=== PATIENT | male | born 1930 | race Hispanic/Latino ===

== ENCOUNTER → 2019-11-14 | Outpatient (CLI) | payer OTHER | END | disposition home or self-care (01) | LOC: SHCH 11:00 | PROVIDERS: ATTEND Internal Medicine Cardiovascular Disease | DX: I48.0 Paroxysmal atrial fibrillation (principal) | CPT/HCPCS: 93306; 93356 ==

== ENCOUNTER → 2019-12-06 | Outpatient (CLI) | payer OTHER | END | disposition home or self-care (01) | LOC: SHCH 10:18 → EDUNIT# 10:30 | PROVIDERS: ATTEND Internal Medicine Cardiovascular Disease | DX: R60.9 Edema, unspecified (principal) | CPT/HCPCS: 93970 ==

== ENCOUNTER 2020-03-03 08:56 | Inpatient (IN) | payer OTHER ==
[~2020-03-03] VITALS: Ht 175.3 cm; Wt 67.1 kg
[2020-03-03] MEDS ORDERED: ZOSYN 3.375GM+NS 50ML 50 ML IV ONE (09:14)
[2020-03-03 09:30] LABS: BASOPHILS % (AUTO) 0.4 % (0.0-5.0); EOSINOPHILS % (AUTO) 2.3 % (0.0-8.0); HEMATOCRIT 26.9 % (42-54); LYMPHOCYTES % (AUTO) 18.6 % (21.0-51.0); MEAN CORPUSCULAR HEMOGLOBIN 32.6 pg (27.0-33.0); MEAN CORPUSCULAR HGB CONC 34.2 g/dL (32.0-36.0); MEAN CORPUSCULAR VOLUME 95.4 fL (79-99); MONOCYTES % (AUTO) 9.9 % (3.0-13.0); NEUTROPHILS % (AUTO) 68.3 % (40.0-77.0); PLATELET COUNT (AUTO) 251 K/uL (130-400); RED BLOOD CELL COUNT(AUTO) 2.82 MIL/uL (4.50-6.20); RED CELL DISTRIBUTION WIDTH 13.8 % (11.0-15.5); WHITE BLOOD COUNT (AUTO) 7.8 K/uL (4.8-10.8)
[2020-03-03 09:38] LABS: CREATININE 2.8 mg/dL (0.5-1.5); POTASSIUM 3.9 mmol/L (3.5-5.1)
[2020-03-03 09:43] LABS: ALBUMIN 3.3 g/dL (3.5-5.0); BILIRUBIN,TOTAL 0.6 mg/dL (0.2-1.0)
[2020-03-03] MEDS ORDERED: DIATR MEGLU/DIATRIZOATE SODIUM 30 ML BOTTLE ONE (10:48)
[2020-03-03 11:57] LABS: APPEARANCE,URINE Clear (CLEAR); BILIRUBIN,URINE Negative (NEGATIVE); COLOR,URINE Yellow (YELLOW); GLUCOSE, URINE (UA) Negative (NEGATIVE); KETONES,URINE Negative (NEGATIVE); LEUKOCYTE ESTERASE ,URINE Negative (NEGATIVE); NITRATE,URINE Negative (NEGATIVE); OCCULT BLOOD,URINE Negative (NEGATIVE); PH,URINE 5.5 (5.0-8.0); PROTEIN,URINE POS 2+ mg/dL (NEGATIVE)
[2020-03-03 12:04] LABS: BACTERIA,URINE Rare /HPF (None Seen); RBC,URINE 0-1 /HPF (0-1); SQUAMOUS EPITHELIAL CELL,UR Rare /HPF (0-2); WBC,URINE 0-1 /HPF (0-1)
[2020-03-03] MEDS ORDERED: HYDROCODONE/ACETAMINOPHEN 5/325 MG TAB PO PRN (15:45)
[2020-03-03] MEDS ORDERED: HYDRALAZINE HCL 20 MG/ML VIAL IV PRN (15:45)
[2020-03-03 20:08] VITALS: BP 142/64
[2020-03-03] MEDS ORDERED: SODIUM CHLORIDE 0.9% 250 ML IV ONE (21:06)
[2020-03-03] MEDS: DOXYCYCLINE HYCLATE 100 MG TABLET PO SCH (21:08)
[2020-03-03] MEDS: ZOSYN 3.375GM+NS 50ML 50 ML IV SCH (21:08)
[2020-03-03] MEDS: CARBIDOPA-LEVODOPA 25-100 TAB PO SCH (21:08)
[2020-03-03] MEDS: SODIUM BICARBONATE 650 MG TAB PO SCH (21:08)
[2020-03-03] MEDS: HEPARIN SODIUM 5000UNIT/ML 1ML VIAL SQ SCH (21:16)
[2020-03-04] VITALS (7 sets, daily range): BP systolic 128–147; BP diastolic 62–77
[2020-03-04] MEDS ORDERED: AMIO200T6 PO (01:20)
[2020-03-04] MEDS ORDERED: CARB1TAB20 PO (01:20)
[2020-03-04] MEDS ORDERED: CLIN300C9 PO (01:20)
[2020-03-04] MEDS ORDERED: SODI650T PO (01:20)
[2020-03-04] MEDS ORDERED: BENA20TA10 PO (01:20)
[2020-03-04] MEDS ORDERED: ACET-2123 PO (01:20)
[2020-03-04 05:42] LABS: BASOPHILS % (AUTO) 0.7 % (0.0-5.0); EOSINOPHILS % (AUTO) 2.8 % (0.0-8.0); HEMATOCRIT 24.4 % (42-54); MEAN CORPUSCULAR HEMOGLOBIN 32.4 pg (27.0-33.0); MEAN CORPUSCULAR HGB CONC 34.4 g/dL (32.0-36.0); MEAN CORPUSCULAR VOLUME 94.2 fL (79-99); MONOCYTES % (AUTO) 9.5 % (3.0-13.0); NEUTROPHILS % (AUTO) 65.5 % (40.0-77.0); PLATELET COUNT (AUTO) 220 K/uL (130-400); RED BLOOD CELL COUNT(AUTO) 2.59 MIL/uL (4.50-6.20); RED CELL DISTRIBUTION WIDTH 13.6 % (11.0-15.5); WHITE BLOOD COUNT (AUTO) 6.1 K/uL (4.8-10.8)
[2020-03-04 06:06] LABS: ALBUMIN 2.7 g/dL (3.5-5.0); BILIRUBIN,TOTAL 0.6 mg/dL (0.2-1.0); CREATININE 2.5 mg/dL (0.5-1.5); CRP QUANTITATIVE 48.2 mg/L (0.00-9.0); POTASSIUM 4.3 mmol/L (3.5-5.1); TOTAL PROTEIN, SERUM 6.6 g/dL (6.0-8.3)
[2020-03-04 06:18] LABS: % IRON SATURATION 15.9 % (30-44)
[2020-03-04] MEDS ORDERED: AMLODIPINE BESYLATE 5 MG TAB PO SCH (09:00)
[2020-03-04] MEDS ORDERED: BENAZEPRIL HCL 10 MG TABLET PO SCH (09:00)
[2020-03-04] MEDS: CYANOCOBALAMIN (VITAMIN B-12) 1,000 MCG TABLET PO SCH (10:17)
[2020-03-04] MEDS: FERROUS SULFATE 325 MG TABLET.DR PO SCH (10:17)
[2020-03-04] MEDS: ZOSYN 3.375GM+NS 50ML 50 ML IV SCH ×2 (10:17→20:04)
[2020-03-04] MEDS: Vitamin B Complex/Vit C/Folic Acid PO SCH (10:17)
[2020-03-04] MEDS: TAMSULOSIN HCL 0.4 MG CAP.ER.24H PO SCH (10:17)
[2020-03-04] MEDS: BENAZEPRIL HCL 10 MG TABLET PO SCH (10:18)
[2020-03-04] MEDS: DOXYCYCLINE HYCLATE 100 MG TABLET PO SCH ×2 (10:18→20:04)
[2020-03-04] MEDS: FAMOTIDINE 20MG TAB 20 MG TAB PO SCH (10:18)
[2020-03-04] MEDS: PANTOPRAZOLE SODIUM 40 MG TABLET.DR PO SCH (10:18)
[2020-03-04] MEDS: SODIUM BICARBONATE 650 MG TAB PO SCH ×2 (10:18→20:04)
[2020-03-04] MEDS: AMIODARONE HCL 200 MG TABLET PO SCH (10:18)
[2020-03-04] MEDS: CARBIDOPA-LEVODOPA 25-100 TAB PO SCH ×3 (10:20→20:04)
[2020-03-04] MEDS: HEPARIN SODIUM 5000UNIT/ML 1ML VIAL SQ SCH ×2 (10:32→20:13)
--- NOTE | 2020-03-04 12:45 | NUR ---
[facility] DC Storage Engineer spoke to pt's daughter Kimberly Ku discussed dc plans. Pt is semi-independent prior to admission, lives at home alone, daughters lives close by. Pt has a walker, private pay provider, handicapped ramp. Denies any other equipments/services. Feels safe to go back home, daughters able to assist with transportation and needs as necessary. PT and daughter are agreeable for placement if necessary, will wait for MD recommendations. DC plan to home vs SNF/IRU. CM to continue to follow up. Addendum: 03/04/20 at 1249 by ZION COYNE LVN Amended: Links added.
[2020-03-04] MEDS ORDERED: ACETAMINOPHEN 325 MG TAB PO PRN (19:30)
[2020-03-04] MEDS ORDERED: DIPHENHYDRAMINE HCL 25 MG CAPSULE PO PRN (19:30)
[2020-03-05] MEDS ORDERED: DIPHENHYDRAMINE HCL 25 MG CAPSULE ONE (01:31)
[2020-03-05 04:29] VITALS: BP 140/75
[2020-03-05 05:23] LABS: BASOPHILS % (AUTO) 0.3 % (0.0-5.0); EOSINOPHILS % (AUTO) 2.2 % (0.0-8.0); HEMATOCRIT 25.2 % (42-54); LYMPHOCYTES % (AUTO) 19.8 % (21.0-51.0); MEAN CORPUSCULAR HEMOGLOBIN 32.3 pg (27.0-33.0); MEAN CORPUSCULAR HGB CONC 34.5 g/dL (32.0-36.0); MEAN CORPUSCULAR VOLUME 93.7 fL (79-99); MONOCYTES % (AUTO) 8.3 % (3.0-13.0); NEUTROPHILS % (AUTO) 68.9 % (40.0-77.0); PLATELET COUNT (AUTO) 212 K/uL (130-400); RED BLOOD CELL COUNT(AUTO) 2.69 MIL/uL (4.50-6.20); RED CELL DISTRIBUTION WIDTH 13.4 % (11.0-15.5); WHITE BLOOD COUNT (AUTO) 6.5 K/uL (4.8-10.8)
[2020-03-05 05:40] LABS: ALBUMIN 2.7 g/dL (3.5-5.0); BILIRUBIN,TOTAL 0.4 mg/dL (0.2-1.0); CREATININE 2.5 mg/dL (0.5-1.5); MAGNESIUM 2.2 mg/dL (1.80-2.40); PHOSPHORUS 3.4 mg/dL (2.5-4.9); POTASSIUM 4.3 mmol/L (3.5-5.1); TOTAL PROTEIN, SERUM 6.9 g/dL (6.0-8.3)
[2020-03-05 08:20] VITALS: BP 127/68
[2020-03-05] MEDS: ZOSYN 3.375GM+NS 50ML 50 ML IV SCH ×2 (08:53→22:04)
[2020-03-05] MEDS: CYANOCOBALAMIN (VITAMIN B-12) 1,000 MCG TABLET PO SCH (09:00)
[2020-03-05] MEDS: TAMSULOSIN HCL 0.4 MG CAP.ER.24H PO SCH (09:00)
[2020-03-05] MEDS: Vitamin B Complex/Vit C/Folic Acid PO SCH (09:00)
[2020-03-05] MEDS: AMIODARONE HCL 200 MG TABLET PO SCH (09:00)
[2020-03-05] MEDS: FAMOTIDINE 20MG TAB 20 MG TAB PO SCH (09:00)
[2020-03-05] MEDS: HEPARIN SODIUM 5000UNIT/ML 1ML VIAL SQ SCH ×2 (09:00→21:00)
[2020-03-05] MEDS: FERROUS SULFATE 325 MG TABLET.DR PO SCH (09:00)
[2020-03-05] MEDS: SODIUM BICARBONATE 650 MG TAB PO SCH ×2 (09:00→22:04)
[2020-03-05] MEDS: DOXYCYCLINE HYCLATE 100 MG TABLET PO SCH ×2 (09:00→22:04)
[2020-03-05] MEDS: CARBIDOPA-LEVODOPA 25-100 TAB PO SCH ×3 (09:00→22:04)
[2020-03-05] MEDS: BENAZEPRIL HCL 10 MG TABLET PO SCH (09:00)
[2020-03-05] MEDS: PANTOPRAZOLE SODIUM 40 MG TABLET.DR PO SCH (09:00)
[2020-03-05] MEDS ORDERED: HALOPERIDOL DECANOATE 100 MG/ML ML IM SCH (11:00)
[2020-03-05] MEDS ORDERED: HALOPERIDOL LACTATE 5 MG/ML VIAL ONE (11:04)
[2020-03-05] MEDS ORDERED: HALOPERIDOL LACTATE 5 MG/ML VIAL IM SCH (11:15)
[2020-03-05 11:27] VITALS: BP 152/73
[2020-03-05] MEDS ORDERED: QUETIAPINE FUMARATE 25 MG TAB PO PRN (15:30)
[2020-03-05 16:15] VITALS: BP 155/76
[2020-03-05 20:22] VITALS: BP 142/74
[2020-03-05] MEDS: ACETAMINOPHEN-CODEINE 300/30MG TAB PO PRN (22:31)
[2020-03-05 23:54] VITALS: BP 135/64
[2020-03-06 04:15] VITALS: BP 134/76
[2020-03-06 04:18] LABS: BASOPHILS % (AUTO) 0.2 % (0.0-5.0); EOSINOPHILS % (AUTO) 1.6 % (0.0-8.0); HEMATOCRIT 23.1 % (42-54); LYMPHOCYTES % (AUTO) 22.6 % (21.0-51.0); MEAN CORPUSCULAR HEMOGLOBIN 31.8 pg (27.0-33.0); MEAN CORPUSCULAR HGB CONC 33.8 g/dL (32.0-36.0); MEAN CORPUSCULAR VOLUME 94.3 fL (79-99); MONOCYTES % (AUTO) 12.1 % (3.0-13.0); NEUTROPHILS % (AUTO) 63.1 % (40.0-77.0); PLATELET COUNT (AUTO) 194 K/uL (130-400); RED BLOOD CELL COUNT(AUTO) 2.45 MIL/uL (4.50-6.20); RED CELL DISTRIBUTION WIDTH 13.6 % (11.0-15.5); WHITE BLOOD COUNT (AUTO) 5.5 K/uL (4.8-10.8)
[2020-03-06 04:32] LABS: ALBUMIN 2.6 g/dL (3.5-5.0); ASPARTATE AMINOTRANSFERASE 24 U/L (10-37); BILIRUBIN,TOTAL 0.4 mg/dL (0.2-1.0); CARBON DIOXIDE 25 mmol/L (21-32); CHLORIDE 106 mmol/L (101-111); CREATININE 2.8 mg/dL (0.5-1.5); GLOMERULAR FILTR. RATE CALC 23 mL/min (>60); GLUCOSE,RANDOM 77 mg/dL (70-105); POTASSIUM 4.2 mmol/L (3.5-5.1); SODIUM SERUM 137 mmol/L (136-145); TOTAL PROTEIN, SERUM 6.6 g/dL (6.0-8.3); UREA NITROGEN, BLOOD 26 mg/dL (7-18)
[2020-03-06 04:33] LABS: ALANINE AMINOTRANSFERASE < 6 U/L (12-78)
[2020-03-06 07:30] VITALS: BP 115/70
--- NOTE | 2020-03-06 09:30 | NUR ---
RIGHT TOM AREA Addendum: 03/06/20 at 1421 by ELIANA FRANZ RN RN Amended: Links added.
[2020-03-06] MEDS: ZOSYN 3.375GM+NS 50ML 50 ML IV SCH ×2 (09:37→20:55)
[2020-03-06] MEDS: CARBIDOPA-LEVODOPA 25-100 TAB PO SCH ×3 (09:42→20:56)
[2020-03-06] MEDS: SODIUM BICARBONATE 650 MG TAB PO SCH ×2 (09:42→20:56)
[2020-03-06] MEDS: PANTOPRAZOLE SODIUM 40 MG TABLET.DR PO SCH (09:42)
[2020-03-06] MEDS: AMIODARONE HCL 200 MG TABLET PO SCH (09:42)
[2020-03-06] MEDS: TAMSULOSIN HCL 0.4 MG CAP.ER.24H PO SCH (09:42)
[2020-03-06] MEDS: FAMOTIDINE 20MG TAB 20 MG TAB PO SCH (09:42)
[2020-03-06] MEDS: DOXYCYCLINE HYCLATE 100 MG TABLET PO SCH ×2 (09:42→20:56)
[2020-03-06] MEDS: FERROUS SULFATE 325 MG TABLET.DR PO SCH (09:42)
[2020-03-06] MEDS: CYANOCOBALAMIN (VITAMIN B-12) 1,000 MCG TABLET PO SCH (09:42)
[2020-03-06] MEDS: Vitamin B Complex/Vit C/Folic Acid PO SCH (09:43)
[2020-03-06] MEDS: BENAZEPRIL HCL 10 MG TABLET PO SCH (09:43)
[2020-03-06] MEDS: HEPARIN SODIUM 5000UNIT/ML 1ML VIAL SQ SCH ×2 (09:50→21:10)
--- NOTE | 2020-03-06 11:40 | NUR ---
BACK FROM CT VIA BED HAD CT SAY / HEAD AND CT OF RIGHT PELVIC SOFT TISSUE
[2020-03-06 11:58] VITALS: BP 142/74
[2020-03-06] MEDS ORDERED: COMPOUND IV MISC 1 EACH IVSOLN MISC PRN (13:45)
[2020-03-06 16:00] VITALS: BP 144/68
[2020-03-06 19:47] VITALS: BP 143/66
[2020-03-06] MEDS: ACETAMINOPHEN-CODEINE 300/30MG TAB PO PRN (20:56)
[2020-03-06 23:57] VITALS: BP 148/73
[2020-03-07] VITALS (24 sets, daily range): BP systolic 112–161; BP diastolic 52–82
[2020-03-07 04:42] LABS: BASOPHILS % (AUTO) 0.3 % (0.0-5.0); EOSINOPHILS % (AUTO) 2.4 % (0.0-8.0); LYMPHOCYTES % (AUTO) 19.9 % (21.0-51.0); MEAN CORPUSCULAR HEMOGLOBIN 32.1 pg (27.0-33.0); MEAN CORPUSCULAR HGB CONC 33.8 g/dL (32.0-36.0); MEAN CORPUSCULAR VOLUME 94.9 fL (79-99); MONOCYTES % (AUTO) 9.4 % (3.0-13.0); NEUTROPHILS % (AUTO) 67.5 % (40.0-77.0); PLATELET COUNT (AUTO) 219 K/uL (130-400); RED BLOOD CELL COUNT(AUTO) 2.74 MIL/uL (4.50-6.20); RED CELL DISTRIBUTION WIDTH 13.6 % (11.0-15.5); WHITE BLOOD COUNT (AUTO) 7.6 K/uL (4.8-10.8)
[2020-03-07 04:54] LABS: CREATININE 2.7 mg/dL (0.5-1.5); POTASSIUM 4.2 mmol/L (3.5-5.1)
[2020-03-07] MEDS: SODIUM BICARBONATE 650 MG TAB PO SCH ×2 (09:00→20:27)
[2020-03-07] MEDS: HEPARIN SODIUM 5000UNIT/ML 1ML VIAL SQ SCH ×2 (09:00→20:29)
[2020-03-07] MEDS: DOXYCYCLINE HYCLATE 100 MG TABLET PO SCH ×2 (09:00→20:27)
[2020-03-07] MEDS: CARBIDOPA-LEVODOPA 25-100 TAB PO SCH ×3 (09:00→20:27)
[2020-03-07] MEDS: ZOSYN 3.375GM+NS 50ML 50 ML IV SCH ×2 (10:46→20:27)
[2020-03-07] MEDS: IRON SUCROSE COMPLEX 100 MG in SODIUM CHLORIDE 0.9% 50 ML IV SCH (10:46)
[2020-03-07] MEDS ORDERED: SODIUM CHLORIDE 0.9% 1000ML 1,000 ML IV ONE (12:13)
[2020-03-07] MEDS ORDERED: MIDAZOLAM HCL 1 MG/ML 2ML VIAL ONE (12:57)
[2020-03-07] MEDS ORDERED: KETAMINE 50MG/ML SYRINGE 50 MG/ML DISP.SYRIN IV ONE (12:59)
[2020-03-07] MEDS ORDERED: PROPOFOL 1000 MG/100 ML 100 ML IV ONE (12:59)
[2020-03-07] MEDS ORDERED: BUPIVACAINE/PF 0.5% 10ML VIAL ONE (13:14)
[2020-03-07] MEDS: FERROUS SULFATE 325 MG TABLET.DR PO SCH (16:55)
[2020-03-07] MEDS: Vitamin B Complex/Vit C/Folic Acid PO SCH (16:55)
[2020-03-07] MEDS: PANTOPRAZOLE SODIUM 40 MG TABLET.DR PO SCH (16:55)
[2020-03-07] MEDS: TAMSULOSIN HCL 0.4 MG CAP.ER.24H PO SCH (16:55)
[2020-03-07] MEDS: BENAZEPRIL HCL 10 MG TABLET PO SCH (16:55)
[2020-03-07] MEDS: FAMOTIDINE 20MG TAB 20 MG TAB PO SCH (16:55)
[2020-03-07] MEDS: CYANOCOBALAMIN (VITAMIN B-12) 1,000 MCG TABLET PO SCH (16:57)
[2020-03-07] MEDS: AMIODARONE HCL 200 MG TABLET PO SCH (16:58)
[2020-03-07] MEDS ORDERED: DIPHENHYDRAMINE HCL 25 MG CAPSULE ONE (22:54)
[2020-03-08 00:47] VITALS: BP 133/57
[2020-03-08 03:51] VITALS: BP 162/69
[2020-03-08 06:15] LABS: BASOPHILS % (AUTO) 0.5 % (0.0-5.0); EOSINOPHILS % (AUTO) 2.6 % (0.0-8.0); HEMATOCRIT 26.1 % (42-54); LYMPHOCYTES % (AUTO) 12.3 % (21.0-51.0); MEAN CORPUSCULAR HGB CONC 33.7 g/dL (32.0-36.0); MEAN CORPUSCULAR VOLUME 94.9 fL (79-99); NEUTROPHILS % (AUTO) 73.1 % (40.0-77.0); PLATELET COUNT (AUTO) 204 K/uL (130-400); RED BLOOD CELL COUNT(AUTO) 2.75 MIL/uL (4.50-6.20); RED CELL DISTRIBUTION WIDTH 13.7 % (11.0-15.5); WHITE BLOOD COUNT (AUTO) 6.5 K/uL (4.8-10.8)
[2020-03-08 06:29] LABS: CREATININE 2.6 mg/dL (0.5-1.5); POTASSIUM 4.5 mmol/L (3.5-5.1)
[2020-03-08] MEDS: SODIUM BICARBONATE 650 MG TAB PO SCH ×2 (09:30→20:27)
[2020-03-08] MEDS: CYANOCOBALAMIN (VITAMIN B-12) 1,000 MCG TABLET PO SCH (09:31)
[2020-03-08] MEDS: TAMSULOSIN HCL 0.4 MG CAP.ER.24H PO SCH (09:31)
[2020-03-08] MEDS: AMIODARONE HCL 200 MG TABLET PO SCH (09:31)
[2020-03-08] MEDS: BENAZEPRIL HCL 10 MG TABLET PO SCH (09:31)
[2020-03-08] MEDS: FAMOTIDINE 20MG TAB 20 MG TAB PO SCH (09:31)
[2020-03-08] MEDS: DOXYCYCLINE HYCLATE 100 MG TABLET PO SCH ×2 (09:32→20:27)
[2020-03-08] MEDS: CARBIDOPA-LEVODOPA 25-100 TAB PO SCH ×3 (09:32→20:27)
[2020-03-08] MEDS: PANTOPRAZOLE SODIUM 40 MG TABLET.DR PO SCH (09:32)
[2020-03-08] MEDS: FERROUS SULFATE 325 MG TABLET.DR PO SCH (09:33)
[2020-03-08] MEDS: Vitamin B Complex/Vit C/Folic Acid PO SCH (09:34)
[2020-03-08] MEDS: ZOSYN 3.375GM+NS 50ML 50 ML IV SCH ×2 (09:34→20:27)
[2020-03-08] MEDS: IRON SUCROSE COMPLEX 100 MG in SODIUM CHLORIDE 0.9% 50 ML IV SCH (09:51)
[2020-03-08 09:53] VITALS: BP 135/55
[2020-03-08] MEDS: HEPARIN SODIUM 5000UNIT/ML 1ML VIAL SQ SCH ×2 (10:18→20:52)
[2020-03-08 12:42] VITALS: BP 117/72
[2020-03-08] MEDS ORDERED: IRON SUCROSE COMPLEX 100 MG in SODIUM CHLORIDE 0.9% 50 ML IV SCH (16:30)
[2020-03-08 16:58] VITALS: BP 155/66
[2020-03-08 20:10] VITALS: BP 159/65
[2020-03-09 00:01] VITALS: BP 157/67
[2020-03-09 04:02] VITALS: BP 160/61
[2020-03-09 05:54] LABS: BASOPHILS % (AUTO) 0.3 % (0.0-5.0); HEMATOCRIT 25.4 % (42-54); LYMPHOCYTES % (AUTO) 18.8 % (21.0-51.0); MEAN CORPUSCULAR HEMOGLOBIN 32.2 pg (27.0-33.0); MEAN CORPUSCULAR HGB CONC 33.9 g/dL (32.0-36.0); MEAN CORPUSCULAR VOLUME 95.1 fL (79-99); MONOCYTES % (AUTO) 10.5 % (3.0-13.0); NEUTROPHILS % (AUTO) 67.6 % (40.0-77.0); PLATELET COUNT (AUTO) 239 K/uL (130-400); RED BLOOD CELL COUNT(AUTO) 2.67 MIL/uL (4.50-6.20); RED CELL DISTRIBUTION WIDTH 13.6 % (11.0-15.5)
[2020-03-09 06:08] LABS: CREATININE 2.8 mg/dL (0.5-1.5); POTASSIUM 4.3 mmol/L (3.5-5.1)
[2020-03-09] MEDS: IRON SUCROSE COMPLEX 100 MG in SODIUM CHLORIDE 0.9% 50 ML IV SCH (09:14)
[2020-03-09] MEDS: ZOSYN 3.375GM+NS 50ML 50 ML IV SCH ×2 (09:14→20:51)
[2020-03-09] MEDS: PANTOPRAZOLE SODIUM 40 MG TABLET.DR PO SCH (09:15)
[2020-03-09] MEDS: SODIUM BICARBONATE 650 MG TAB PO SCH ×2 (09:15→20:51)
[2020-03-09] MEDS: CARBIDOPA-LEVODOPA 25-100 TAB PO SCH ×3 (09:15→20:53)
[2020-03-09] MEDS: FAMOTIDINE 20MG TAB 20 MG TAB PO SCH (09:15)
[2020-03-09] MEDS: DOXYCYCLINE HYCLATE 100 MG TABLET PO SCH ×2 (09:16→20:51)
[2020-03-09] MEDS: Vitamin B Complex/Vit C/Folic Acid PO SCH (09:16)
[2020-03-09] MEDS: BENAZEPRIL HCL 10 MG TABLET PO SCH (09:16)
[2020-03-09] MEDS: CYANOCOBALAMIN (VITAMIN B-12) 1,000 MCG TABLET PO SCH (09:16)
[2020-03-09] MEDS: TAMSULOSIN HCL 0.4 MG CAP.ER.24H PO SCH (09:16)
[2020-03-09] MEDS: AMIODARONE HCL 200 MG TABLET PO SCH (09:16)
[2020-03-09] MEDS: FERROUS SULFATE 325 MG TABLET.DR PO SCH (09:16)
[2020-03-09] MEDS: HEPARIN SODIUM 5000UNIT/ML 1ML VIAL SQ SCH ×2 (09:53→20:26)
[2020-03-09 10:06] VITALS: BP 134/74
[2020-03-09 12:22] VITALS: BP 141/61
--- NOTE | 2020-03-09 13:09 | NUR ---
Pt IS NOT A GOOD HISTORIAN AT THIS TIME. UNCLEAR PLOF OR LIVING ARRANGEMENTS. Pt NEEDS HELP FOR ALL ADL INCLUDING FEEDING. SPEECH EVAL FOR SWALLOW RECOMMENDED DUE TO POOR ABILITY TO CLEAN FOOD OUT OF MOUTH AND COUGH NOTED WITH DRINKING THIN LIQUIDS WITH STRAW Addendum: 03/09/20 at 1311 by PAVAN SMITH PT PT Amended: Links added.
[2020-03-09 16:50] VITALS: BP 152/81
[2020-03-09] MEDS: ACETAMINOPHEN-CODEINE 300/30MG TAB PO PRN (17:07)
[2020-03-09 20:02] VITALS: BP 127/58
[2020-03-10 00:16] VITALS: BP 146/71
[2020-03-10] MEDS: ACETAMINOPHEN-CODEINE 300/30MG TAB PO PRN (01:51)
[2020-03-10 03:59] VITALS: BP 153/70
[2020-03-10 05:55] LABS: BASOPHILS % (AUTO) 0.5 % (0.0-5.0); EOSINOPHILS % (AUTO) 2.6 % (0.0-8.0); HEMATOCRIT 25.7 % (42-54); LYMPHOCYTES % (AUTO) 24.3 % (21.0-51.0); MEAN CORPUSCULAR HEMOGLOBIN 32.5 pg (27.0-33.0); MEAN CORPUSCULAR HGB CONC 33.9 g/dL (32.0-36.0); MEAN CORPUSCULAR VOLUME 95.9 fL (79-99); MONOCYTES % (AUTO) 10.4 % (3.0-13.0); NEUTROPHILS % (AUTO) 61.7 % (40.0-77.0); PLATELET COUNT (AUTO) 223 K/uL (130-400); RED BLOOD CELL COUNT(AUTO) 2.68 MIL/uL (4.50-6.20); RED CELL DISTRIBUTION WIDTH 13.9 % (11.0-15.5); WHITE BLOOD COUNT (AUTO) 7.6 K/uL (4.8-10.8)
[2020-03-10 06:25] LABS: POTASSIUM 4.4 mmol/L (3.5-5.1)
[2020-03-10 07:30] VITALS: BP 140/64
[2020-03-10] MEDS: ZOSYN 3.375GM+NS 50ML 50 ML IV SCH (08:54)
[2020-03-10] MEDS: DOXYCYCLINE HYCLATE 100 MG TABLET PO SCH (09:00)
[2020-03-10] MEDS: FERROUS SULFATE 325 MG TABLET.DR PO SCH (09:01)
[2020-03-10] MEDS: BENAZEPRIL HCL 10 MG TABLET PO SCH (09:01)
[2020-03-10] MEDS: TAMSULOSIN HCL 0.4 MG CAP.ER.24H PO SCH (09:01)
[2020-03-10] MEDS: Vitamin B Complex/Vit C/Folic Acid PO SCH (09:01)
[2020-03-10] MEDS: CYANOCOBALAMIN (VITAMIN B-12) 1,000 MCG TABLET PO SCH (09:02)
[2020-03-10] MEDS: AMIODARONE HCL 200 MG TABLET PO SCH (09:02)
[2020-03-10] MEDS: CARBIDOPA-LEVODOPA 25-100 TAB PO SCH ×3 (09:02→21:48)
[2020-03-10] MEDS: PANTOPRAZOLE SODIUM 40 MG TABLET.DR PO SCH (09:02)
[2020-03-10] MEDS: FAMOTIDINE 20MG TAB 20 MG TAB PO SCH (09:02)
[2020-03-10] MEDS: SODIUM BICARBONATE 650 MG TAB PO SCH ×2 (09:02→21:48)
[2020-03-10] MEDS: HEPARIN SODIUM 5000UNIT/ML 1ML VIAL SQ SCH ×2 (09:07→21:47)
--- NOTE | 2020-03-10 09:30 | NUR ---
CM Note: Fam pending to agree for placement CM called pt daughter Mady on facesheet, explained pt will be needing abx iv and will need placement, Mady verbalized would like to talk to sister Kimberly and will inform CM once decision made. Daughter pending to agree for placement at this time. Primary nurse Emeli MOCK aware. CM to continue to follow up.
[2020-03-10 10:09] LABS: DENGUE IGG ANTIBODY 1.54 ISR (<1.65)
[2020-03-10 11:00] VITALS: BP 137/74
[2020-03-10] MEDS: CEFAZOLIN SODIUM 1 GM VIAL IVP SCH (14:34)
[2020-03-10 15:52] VITALS: BP 126/77
[2020-03-10] MEDS ORDERED: EPOETIN ALFA 10,000 UNIT/ML VIAL SQ SCH (21:00)
[2020-03-10 21:53] VITALS: BP 172/73
[2020-03-11] MEDS: CEFAZOLIN SODIUM 1 GM VIAL IVP SCH ×2 (01:00→15:28)
[2020-03-11 01:29] VITALS: BP 126/55
[2020-03-11 05:20] LABS: BASOPHILS % (AUTO) 0.7 % (0.0-5.0); EOSINOPHILS % (AUTO) 3.6 % (0.0-8.0); HEMATOCRIT 24.1 % (42-54); LYMPHOCYTES % (AUTO) 21.6 % (21.0-51.0); MEAN CORPUSCULAR HEMOGLOBIN 31.7 pg (27.0-33.0); MEAN CORPUSCULAR HGB CONC 33.2 g/dL (32.0-36.0); MEAN CORPUSCULAR VOLUME 95.6 fL (79-99); MONOCYTES % (AUTO) 9.6 % (3.0-13.0); PLATELET COUNT (AUTO) 215 K/uL (130-400); RED BLOOD CELL COUNT(AUTO) 2.52 MIL/uL (4.50-6.20); RED CELL DISTRIBUTION WIDTH 13.5 % (11.0-15.5); WHITE BLOOD COUNT (AUTO) 5.8 K/uL (4.8-10.8)
[2020-03-11 05:24] LABS: CREATININE 2.9 mg/dL (0.5-1.5); POTASSIUM 4.4 mmol/L (3.5-5.1)
[2020-03-11 06:32] VITALS: BP 130/74
[2020-03-11 08:00] VITALS: BP 126/61
[2020-03-11] MEDS: Vitamin B Complex/Vit C/Folic Acid PO SCH (09:00)
[2020-03-11 11:47] VITALS: BP 142/73
[2020-03-11] MEDS: FERROUS SULFATE 325 MG TABLET.DR PO SCH (12:54)
[2020-03-11] MEDS: AMIODARONE HCL 200 MG TABLET PO SCH (12:55)
[2020-03-11] MEDS: BENAZEPRIL HCL 10 MG TABLET PO SCH (12:55)
[2020-03-11] MEDS: FAMOTIDINE 20MG TAB 20 MG TAB PO SCH (12:55)
[2020-03-11] MEDS: PANTOPRAZOLE SODIUM 40 MG TABLET.DR PO SCH (12:56)
[2020-03-11] MEDS: CYANOCOBALAMIN (VITAMIN B-12) 1,000 MCG TABLET PO SCH (12:56)
[2020-03-11] MEDS: CARBIDOPA-LEVODOPA 25-100 TAB PO SCH ×3 (12:56→21:50)
[2020-03-11] MEDS: SODIUM BICARBONATE 650 MG TAB PO SCH ×2 (12:56→21:50)
[2020-03-11] MEDS: HEPARIN SODIUM 5000UNIT/ML 1ML VIAL SQ SCH ×2 (12:57→21:51)
[2020-03-11] MEDS: TAMSULOSIN HCL 0.4 MG CAP.ER.24H PO SCH (12:58)
--- NOTE | 2020-03-11 14:34 | NUR ---
CM Note: [facility] pending approval CM spoke to pt's daughter Mady Rosales , now agreeable for placement, telephone consent obtained for [facility], witnessed by Nini MOCK. Faxed order, clinicals, PT, Covid Transfer Form and result to [facility], confirmation received. CM spoke to Jojo cody/Marcel, aware dcp once approved, made aware [facility], verbalized will send for approval today. MOT semi-filled out pending to be completed flagged in chart. EMS arranged and faxed for today in case, primary nurse to call [facility] once pt ready to DC. Primary nurse Emeli MOCK aware. CM to continue to follow up.
[2020-03-11] MEDS: ACETAMINOPHEN-CODEINE 300/30MG TAB PO PRN (15:18)
[2020-03-11 16:00] VITALS: BP 142/68
--- NOTE | 2020-03-11 17:00 | NUR ---
DRESSING right groin wound packed with iodoform gauge 4x4 and tape right flank wound packed with iodoform gauge 4x4 and tape
[2020-03-11 20:48] VITALS: BP 147/66
[2020-03-12] VITALS (7 sets, daily range): BP systolic 127–148; BP diastolic 60–78
[2020-03-12] MEDS: CEFAZOLIN SODIUM 1 GM VIAL IVP SCH ×2 (01:38→18:10)
--- NOTE | 2020-03-12 08:00 | NUR ---
PT ORIENTATED TO HIS CARE. SOME QUESTION HE CAN FOCUS , WITH SOME GET FORGETFUL. BEDALARM ON. AND CALL LIGHT, IN BARRIE CH. DENIES ANY PAIN . RT GROIN DRSG DRY AND BACK AREA.
[2020-03-12] MEDS: FAMOTIDINE 20MG TAB 20 MG TAB PO SCH (08:17)
[2020-03-12] MEDS: CYANOCOBALAMIN (VITAMIN B-12) 1,000 MCG TABLET PO SCH (08:17)
[2020-03-12] MEDS: SODIUM BICARBONATE 650 MG TAB PO SCH ×2 (08:17→20:11)
[2020-03-12] MEDS: CARBIDOPA-LEVODOPA 25-100 TAB PO SCH ×3 (08:17→20:11)
[2020-03-12] MEDS: TAMSULOSIN HCL 0.4 MG CAP.ER.24H PO SCH (08:17)
[2020-03-12] MEDS: BENAZEPRIL HCL 10 MG TABLET PO SCH (08:17)
[2020-03-12] MEDS: Vitamin B Complex/Vit C/Folic Acid PO SCH (08:17)
[2020-03-12] MEDS: AMIODARONE HCL 200 MG TABLET PO SCH (08:17)
[2020-03-12] MEDS: FERROUS SULFATE 325 MG TABLET.DR PO SCH (08:18)
[2020-03-12] MEDS: HEPARIN SODIUM 5000UNIT/ML 1ML VIAL SQ SCH ×2 (08:36→20:12)
[2020-03-12] MEDS: PANTOPRAZOLE SODIUM 40 MG TABLET.DR PO SCH (09:00)
[2020-03-12 14:31] LABS: INR 0.99 (0.85-1.15); PROTHROMBIN TIME 10.7 SEC (9.6-11.6)
[2020-03-12] MEDS: ACETAMINOPHEN-CODEINE 300/30MG TAB PO PRN (21:12)
[2020-03-13] MEDS: CEFAZOLIN SODIUM 1 GM VIAL IVP SCH ×2 (00:17→14:30)
[2020-03-13 04:00] VITALS: BP 147/66
--- NOTE | 2020-03-13 04:46 | NUR ---
pictures taken of his right groin and right lower back and placed in the chart. wound care conducted with saline, iodoform packing, gauze, and medipore tape on right groin and right lower back.
[2020-03-13 04:52] LABS: BASOPHILS % (AUTO) 0.4 % (0.0-5.0); EOSINOPHILS % (AUTO) 2.1 % (0.0-8.0); HEMATOCRIT 26.1 % (42-54); LYMPHOCYTES % (AUTO) 16.1 % (21.0-51.0); MEAN CORPUSCULAR HGB CONC 33.7 g/dL (32.0-36.0); MEAN CORPUSCULAR VOLUME 94.9 fL (79-99); MONOCYTES % (AUTO) 12.6 % (3.0-13.0); PLATELET COUNT (AUTO) 260 K/uL (130-400); RED BLOOD CELL COUNT(AUTO) 2.75 MIL/uL (4.50-6.20); RED CELL DISTRIBUTION WIDTH 13.6 % (11.0-15.5); WHITE BLOOD COUNT (AUTO) 7.5 K/uL (4.8-10.8)
[2020-03-13 05:22] LABS: ALBUMIN 2.7 g/dL (3.5-5.0); ASPARTATE AMINOTRANSFERASE 23 U/L (10-37); BILIRUBIN,TOTAL 0.3 mg/dL (0.2-1.0); CARBON DIOXIDE 24 mmol/L (21-32); CHLORIDE 101 mmol/L (101-111); CREATININE 3.2 mg/dL (0.5-1.5); GLOMERULAR FILTR. RATE CALC 20 mL/min (>60); GLUCOSE,RANDOM 97 mg/dL (70-105); PHOSPHORUS 3.8 mg/dL (2.5-4.9); POTASSIUM 4.5 mmol/L (3.5-5.1); SODIUM SERUM 136 mmol/L (136-145); TOTAL PROTEIN, SERUM 7.6 g/dL (6.0-8.3); UREA NITROGEN, BLOOD 47 mg/dL (7-18)
[2020-03-13 05:35] LABS: ALANINE AMINOTRANSFERASE < 6 U/L (12-78); AMMONIA < 10 umol/L (11-32)
[2020-03-13 08:00] VITALS: BP 134/72
--- NOTE | 2020-03-13 10:00 | NUR ---
PICC LINE INSERTED TO LEFT UPPER ARM BRACHIAL UNDER STERILE TECHNIQUE, REPORT GIVEN TO Vidhi GONZALEZ RN
[2020-03-13] MEDS: SODIUM BICARBONATE 650 MG TAB PO SCH ×2 (10:33→20:15)
[2020-03-13] MEDS: FAMOTIDINE 20MG TAB 20 MG TAB PO SCH (10:33)
[2020-03-13] MEDS: Vitamin B Complex/Vit C/Folic Acid PO SCH (10:33)
[2020-03-13] MEDS: TAMSULOSIN HCL 0.4 MG CAP.ER.24H PO SCH (10:33)
[2020-03-13] MEDS: FERROUS SULFATE 325 MG TABLET.DR PO SCH (10:33)
[2020-03-13] MEDS: AMIODARONE HCL 200 MG TABLET PO SCH (10:33)
[2020-03-13] MEDS: CYANOCOBALAMIN (VITAMIN B-12) 1,000 MCG TABLET PO SCH (10:33)
[2020-03-13] MEDS: BENAZEPRIL HCL 10 MG TABLET PO SCH (10:33)
[2020-03-13] MEDS: PANTOPRAZOLE SODIUM 40 MG TABLET.DR PO SCH (10:33)
[2020-03-13] MEDS: HEPARIN SODIUM 5000UNIT/ML 1ML VIAL SQ SCH ×2 (10:34→20:18)
[2020-03-13] MEDS: CARBIDOPA-LEVODOPA 25-100 TAB PO SCH ×3 (10:37→20:15)
[2020-03-13 11:51] VITALS: BP 102/58
--- NOTE | 2020-03-13 12:46 | NUR ---
CON Note: [facility] pending approval CM spoke to Jojo cody/Marcel, pt still pending [facility] at this time. EMS arranged and faxed for today in case, primary nurse aware to call [facility] once pt ready to DC. Primary nurse Olaf RN aware. CM to continue to follow up.
--- NOTE | 2020-03-13 14:41 | NUR ---
RD NOTIFICATION Pt admitted due to Rt flank draining abscess. Pt seen by RD due to LOS x10 days Pt is currently on a heart healthy diet and consuming 75-100% with assistance. Pt's creatinine lab values and BUN are slowly increasing. Pt has wounds, seen in medical chart. Pt has hx of skin cancer, Parkinson disease, CKD stage 4. Pt has dentures however, as per staff, pt does not use them to eat. RD RECOMMENDATION; Add renal non HD diet modifier and mechanical chopped as well mechanical soft to diet order. Last BID to aid in wound healing. Encourage intake with 8 oz of fluid. ProMod 60 ml QD Monitor PO intake and PO tolerance. Monitor renal function. LABS: BUN 47, CREAT 3.2, GFR 20, ALB 2.7, TOT PRO 7.6, AMMONIA <10, IRON 32, TIBC 207, %SAT 15.9 LBM: 03/11/20 RD will continue to follow pt's status. Addendum: 03/13/20 at [address] Amended: Links added.
[2020-03-13 16:00] VITALS: BP 137/57
[2020-03-13 19:10] VITALS: BP 116/56
--- NOTE | 2020-03-13 20:30 | NUR ---
okay to use picc line as per dr. armando
--- NOTE | 2020-03-13 21:00 | NUR ---
called rj lorenzana about 5 times to let her know about the patient's condition and [facility]. there was no reply.
[2020-03-13 23:29] VITALS: BP 145/67
[2020-03-14] MEDS: CEFAZOLIN SODIUM 1 GM VIAL IVP SCH ×2 (01:28→13:06)
[2020-03-14 03:15] VITALS: BP 157/69
--- NOTE | 2020-03-14 03:35 | NUR ---
wound care conducted on the right groin and right lower back with saline, gauze, iodoform dressing, medipore tape. patient tolerated it well. no further issues.
[2020-03-14 05:11] LABS: BASOPHILS % (AUTO) 0.3 % (0.0-5.0); EOSINOPHILS % (AUTO) 0.7 % (0.0-8.0); HEMATOCRIT 23.9 % (42-54); LYMPHOCYTES % (AUTO) 13.9 % (21.0-51.0); MEAN CORPUSCULAR HEMOGLOBIN 32.1 pg (27.0-33.0); MEAN CORPUSCULAR HGB CONC 33.9 g/dL (32.0-36.0); MEAN CORPUSCULAR VOLUME 94.8 fL (79-99); MONOCYTES % (AUTO) 12.1 % (3.0-13.0); NEUTROPHILS % (AUTO) 72.3 % (40.0-77.0); PLATELET COUNT (AUTO) 129 K/uL (130-400); RED BLOOD CELL COUNT(AUTO) 2.52 MIL/uL (4.50-6.20); RED CELL DISTRIBUTION WIDTH 13.6 % (11.0-15.5); WHITE BLOOD COUNT (AUTO) 7.6 K/uL (4.8-10.8)
[2020-03-14 05:44] LABS: ALBUMIN 2.5 g/dL (3.5-5.0); BILIRUBIN,TOTAL 0.3 mg/dL (0.2-1.0); CREATININE 2.9 mg/dL (0.5-1.5); POTASSIUM 4.7 mmol/L (3.5-5.1); TOTAL PROTEIN, SERUM 7.2 g/dL (6.0-8.3)
[2020-03-14 08:00] VITALS: BP 126/91
--- NOTE | 2020-03-14 08:00 | NUR ---
ASSESSMENT PT IS AA0X3 PT IS ABLE TO TELL ME HIS NAME, , AND LOCATION. PT VS STABLE, PROVIDER IS AT BEDSIDE, WILL CONTINUE TO MONITOR TO MAYBE D/C SITTER.
[2020-03-14] MEDS: Vitamin B Complex/Vit C/Folic Acid PO SCH (08:20)
[2020-03-14] MEDS: CYANOCOBALAMIN (VITAMIN B-12) 1,000 MCG TABLET PO SCH (08:20)
[2020-03-14] MEDS: FAMOTIDINE 20MG TAB 20 MG TAB PO SCH (08:20)
[2020-03-14] MEDS: TAMSULOSIN HCL 0.4 MG CAP.ER.24H PO SCH (08:20)
[2020-03-14] MEDS: PANTOPRAZOLE SODIUM 40 MG TABLET.DR PO SCH (08:21)
[2020-03-14] MEDS: CARBIDOPA-LEVODOPA 25-100 TAB PO SCH ×3 (08:21→20:38)
[2020-03-14] MEDS: FERROUS SULFATE 325 MG TABLET.DR PO SCH (08:21)
[2020-03-14] MEDS: AMIODARONE HCL 200 MG TABLET PO SCH (08:21)
[2020-03-14] MEDS: HEPARIN SODIUM 5000UNIT/ML 1ML VIAL SQ SCH ×2 (08:30→20:29)
[2020-03-14] MEDS: ACETAMINOPHEN-CODEINE 300/30MG TAB PO PRN (08:31)
--- NOTE | 2020-03-14 09:30 | NUR ---
CM Note: [facility] approval CM spoke to Jojo cody/Marcel, pt has approval, pt need off 1:1 prior to admission, may take pt tomorrow if 1:1 dc today, Dr Alonzo updated. MOT filled out, signed, pending house [facility] to sign once pt ready to DC. EMS arranged for today, will need to refax tomorrow w/current date, primary nurse to call [facility] once pt ready to DC. Primary nurse Elizabeth MCOK aware. CM to continue to follow up.
--- NOTE | 2020-03-14 09:48 | NUR ---
[facility] FROM [facility] PT NEEDS TO BE OFF FROM 1:1 FOR 24 HRS TO BE ABLE TO BE TRANSFERRED
[2020-03-14] MEDS ORDERED: ZOLPIDEM TARTRATE 5 MG TAB PO SCH ×2 (10:00→20:00)
[2020-03-14] MEDS: SODIUM BICARBONATE 650 MG TAB PO SCH ×2 (10:10→20:38)
--- NOTE | 2020-03-14 11:45 | NUR ---
RD FOLLOW UP Pt is currently on a heart healthy diet, with a renal non HD, mechanical soft/mechanical chopped modifier. As per SPEECH LANGUAGE PATHOLOGY ASSISTANT, pt ate 75% of breakfast; pt tolerated diet well and as per SPEECH LANGUAGE PATHOLOGY ASSISTANT pt stated being hungry. RD RECOMMENDATION: Encourage Last and ProMod ONS intake to aid in wound healing. Continue current diet order, monitor tolerance and PO intake. No recent bowel movement recorded. When medically feasible consider stool softener. RD will continue to follow pt's status. LABS: BUN 39, CREAT 2.9, GFR 22, TOT CA 8.4, ALB 2.5 LBM: 03/11/20 Addendum: 03/14/20 at [address] Amended: Links added.
[2020-03-14 12:00] VITALS: BP 125/69
[2020-03-14 16:00] VITALS: BP 126/61
[2020-03-14] MEDS ORDERED: ZOLPIDEM TARTRATE 5 MG TAB ONE (18:29)
[2020-03-14 20:01] VITALS: BP 141/56
[2020-03-14 23:46] VITALS: BP 121/43
[2020-03-15] MEDS: CEFAZOLIN SODIUM 1 GM VIAL IVP SCH ×2 (00:27→13:33)
--- NOTE | 2020-03-15 03:22 | NUR ---
i gave the patient's night medications at 20:00 including his ambien. he has been asleep all night with no issues.
[2020-03-15 04:00] VITALS: BP 126/41
[2020-03-15 05:49] LABS: BASOPHILS % (AUTO) 0.4 % (0.0-5.0); EOSINOPHILS % (AUTO) 0.6 % (0.0-8.0); HEMATOCRIT 24.4 % (42-54); LYMPHOCYTES % (AUTO) 14.4 % (21.0-51.0); MEAN CORPUSCULAR HGB CONC 33.2 g/dL (32.0-36.0); MEAN CORPUSCULAR VOLUME 96.4 fL (79-99); MONOCYTES % (AUTO) 13.1 % (3.0-13.0); PLATELET COUNT (AUTO) 250 K/uL (130-400); RED BLOOD CELL COUNT(AUTO) 2.53 MIL/uL (4.50-6.20); RED CELL DISTRIBUTION WIDTH 13.8 % (11.0-15.5); WHITE BLOOD COUNT (AUTO) 8.4 K/uL (4.8-10.8)
--- NOTE | 2020-03-15 06:01 | NUR ---
wound care conducted on patient's right groin and right lower back with saline, iodoform packing, gauze, and medipore tape.
[2020-03-15 06:21] LABS: ALANINE AMINOTRANSFERASE < 6 U/L (12-78); ALBUMIN 2.5 g/dL (3.5-5.0); ASPARTATE AMINOTRANSFERASE 19 U/L (10-37); BILIRUBIN,TOTAL 0.3 mg/dL (0.2-1.0); CARBON DIOXIDE 25 mmol/L (21-32); CHLORIDE 103 mmol/L (101-111); CREATININE 3.1 mg/dL (0.5-1.5); GLOMERULAR FILTR. RATE CALC 20 mL/min (>60); GLUCOSE,RANDOM 99 mg/dL (70-105); POTASSIUM 4.5 mmol/L (3.5-5.1); SODIUM SERUM 136 mmol/L (136-145); TOTAL PROTEIN, SERUM 7.2 g/dL (6.0-8.3); UREA NITROGEN, BLOOD 46 mg/dL (7-18)
--- NOTE | 2020-03-15 07:15 | NUR ---
ASSESSMENT NOTE PT AAOX2 VS STABLE, DRESSING DRY AND INTACT. PT SLEPT VERY WELL WITH NO ISSUES, WILL CONTINUE TO MONITOR.
[2020-03-15] MEDS: TAMSULOSIN HCL 0.4 MG CAP.ER.24H PO SCH (08:05)
[2020-03-15] MEDS: FAMOTIDINE 20MG TAB 20 MG TAB PO SCH (08:05)
[2020-03-15] MEDS: Vitamin B Complex/Vit C/Folic Acid PO SCH (08:05)
[2020-03-15] MEDS: CYANOCOBALAMIN (VITAMIN B-12) 1,000 MCG TABLET PO SCH (08:06)
[2020-03-15] MEDS: AMIODARONE HCL 200 MG TABLET PO SCH (08:06)
[2020-03-15] MEDS: FERROUS SULFATE 325 MG TABLET.DR PO SCH (08:06)
[2020-03-15] MEDS: SODIUM BICARBONATE 650 MG TAB PO SCH (08:06)
[2020-03-15] MEDS: PANTOPRAZOLE SODIUM 40 MG TABLET.DR PO SCH (08:06)
[2020-03-15] MEDS: HEPARIN SODIUM 5000UNIT/ML 1ML VIAL SQ SCH (08:15)
[2020-03-15 08:36] VITALS: BP 134/56
[2020-03-15] MEDS ORDERED: PREDNISONE 20 MG TABLET PO SCH (09:00)
[2020-03-15] MEDS: CARBIDOPA-LEVODOPA 25-100 TAB PO SCH ×2 (10:09→13:33)
[2020-03-15] MEDS: ACETAMINOPHEN-CODEINE 300/30MG TAB PO PRN ×2 (10:49→16:28)
[2020-03-15 11:11] VITALS: BP_SYST 109; BP_SYST 141; BP_DIAS 59; BP_DIAS 76
--- NOTE | 2020-03-15 15:00 | NUR ---
POST OP X 2 15 MIN PT HAS PAIN AND VS 181/98 96 HR 62, PT BLADDER STILL DISTENDED AND IS TRY TO VOID WILL CONTINUE TO MONITOR Addendum: 03/15/20 at 1834 by RUKHSANA MERCADO RN RN WRONG PT
--- NOTE | 2020-03-15 15:15 | NUR ---
POST OP X 3 15MIN, PT VOIDED 150 ML B/P 155/103 PT STATES HAS PAIN 02/08 WILL GIVE MORPHINE ORDERED Addendum: 03/15/20 at 1834 by RUKHSANA MERCADO RN RN WRONG PT
--- NOTE | 2020-03-15 15:30 | NUR ---
POSTOP X4 15 MIN PAIN MED GIVEN B/P 155/85 AND PAIN IS AT 6/10 WILL CONTINUE TO MONITOR. Addendum: 03/15/20 at 1835 by RUKHSANA MERCADO RN RN WRONG PT
--- NOTE | 2020-03-15 16:00 | NUR ---
POST OP X 1 30 MIN PT IS SLEEPING COMFORTABLE VS STABLE VOIDED TOTAL OF 400 ML, WILL CONTINUE TO MONITOR Addendum: 03/15/20 at 1835 by RUKHSANA MERCADO RN RN WRONG PT
--- NOTE | 2020-03-15 16:30 | NUR ---
POST OP 30 MIN X 2 PT DRESSING DRY AND INTACT AND PT IS IN BED SLEEPING Addendum: 03/15/20 at 1836 by RUKHSANA MERCADO RN RN WRONG PT
[2020-03-15 16:37] VITALS: BP 141/53
--- NOTE | 2020-03-15 17:36 | NUR ---
[facility] REPORT GIVEN TO SHEILA CASTILLO LVN AT [facility] AND EMS HAS BEEN CALLED FOR TSF
--- NOTE | 2020-03-15 18:53 | NUR ---
EMS PT AA0 X3 VS STABLE LEFT VIA EMS BY STRETCHER WITH DAUGHTER LELA BY HIS SIDE. PT LEFT TO [facility] [place]
[2020-03-16] MEDS ORDERED: EPOETIN ALFA 10,000 UNIT/ML VIAL SQ SCH (09:00)
== END 2020-03-15 18:50 | DRG 854 ==
LOC: EDH 08:56 → EDHIP 15:42 → 3CH 20:05
PROVIDERS: ADMIT Family Medicine; ATTEND Family Medicine
PROC: 0J9L0ZZ Drainage of Right Upper Leg Subcutaneous Tissue and Fascia, Open Approach (ICD-10-PCS; principal; 2020-03-07 12:56)
DX: A41.9 Sepsis, unspecified organism (principal); L02.211 Cutaneous abscess of abdominal wall; N17.9 Acute kidney failure, unspecified; N18.4 Chronic kidney disease, stage 4 (severe); L03.314 Cellulitis of groin; L02.214 Cutaneous abscess of groin; I12.9 Hypertensive chronic kidney disease with stage 1 through stage 4 chronic kidney disease, or unspecified chronic kidney disease; Z20.828 Contact with and (suspected) exposure to other viral communicable diseases; D63.8 Anemia in other chronic diseases classified elsewhere; G20 Parkinson's disease; H91.90 Unspecified hearing loss, unspecified ear; M10.9 Gout, unspecified; N40.0 Benign prostatic hyperplasia without lower urinary tract symptoms; Z74.01 Bed confinement status; Z85.828 Personal history of other malignant neoplasm of skin; M19.90 Unspecified osteoarthritis, unspecified site; E78.5 Hyperlipidemia, unspecified; E66.9 Obesity, unspecified; Z68.21 Body mass index [BMI] 21.0-21.9, adult; R53.81 Other malaise
CPT/HCPCS: 36415; 70450; 72192; 74176; 76882; 80048; 80053; 81001; 82140; 82728; 83540; 83550; 83605; 83735; 84100; 84145; 85025; 85610; 86140; 87040; 87070; 87076; 87077; 87186; 87205; 87426; 97039; A6266; C1894; G0378; J0690; J0885; J1630; J1644; J1756; J2250; J2543; J2704; J3490; J7030; J7050; Q0163; Q9963; U0003